=== PATIENT | female | born 1990 | race Caucasian/White ===

== ENCOUNTER 2019-01-15 23:29 | Emergency (ER) | payer BC ==
[2019-01-16 01:30] LABS: APPEARANCE,URINE CLEAR; BILIRUBIN,URINE NEGATIVE (NEGATIVE); COLOR,URINE YELLOW; GLUCOSE, URINE NEGATIVE (NEGATIVE); KETONES,URINE NEGATIVE (NEGATIVE); LEUKOCYTE ESTERASE,URINE TRACE (NEGATIVE); NITRITE,URINE NEGATIVE (NEGATIVE); PROTEIN,URINE NEGATIVE (NEGATIVE); URINE SPECIFIC GRAVITY 1.008; UROBILINOGEN,URINE NEGATIVE mg/dL (<2.0)
[2019-01-16 02:40] LABS: ABSOLUTE EOSINOPHILS # (AUTO) 0.3 10^3/uL (0.0-0.6); ABSOLUTE LYMPHOCYTES (AUTO) 1.3 10^3/uL (0.5-4.7); ABSOLUTE MONOCYTES (AUTO) 0.6 10^3/uL (0.1-1.4); ABSOLUTE NEUT (AUTO) 6.9 10^3/uL (1.7-8.2); BASOPHILS % (AUTO) 0.2 % (0-2); EOSINOPHILS % (AUTO) 3.3 % (0-6); HEMATOCRIT 35.7 % (36.0-47.0); HEMOGLOBIN 12.4 g/dL (12.0-15.5); LYMPHOCYTES % (AUTO) 13.7 % (13-45); MEAN CORPUSCULAR HEMOGLOBIN 28.9 pg (27.0-33.4); MEAN CORPUSCULAR HGB CONC 34.8 g/dL (32.0-36.0); MEAN CORPUSCULAR VOLUME 83 fl (80-97); MONOCYTES % (AUTO) 6.9 % (3-13); PLATELET COUNT 153 10^3/uL (150-450); SEGMENTED NEUTROPHILS % (AUTO) 75.9 % (42-78); TOTAL CELLS COUNTED % (AUTO) 100 %; WHITE BLOOD COUNT 9.2 10^3/uL (4.0-10.5)
[2019-01-16] MEDS ORDERED: NORMAL SALINE 1000 ML 1,000 ML IV ONE (02:53)
[2019-01-16 02:57] LABS: ALANINE AMINOTRANSFERASE 37 U/L (9-52); ALBUMIN 3.7 g/dL (3.5-5.0); ALKALINE PHOSPHATASE 62 U/L (38-126); ANION GAP 10 (5-19); ASPARTATE AMINO TRANSFERASE 22 U/L (14-36); BILIRUBIN,DIRECT 0.2 mg/dL (0.0-0.4); BILIRUBIN,TOTAL 0.6 mg/dL (0.2-1.3); BLOOD UREA NITROGEN 7 mg/dL (7-20); CALCIUM 8.6 mg/dL (8.4-10.2); CARBON DIOXIDE 22 mmol/L (22-30); CHLORIDE 102 mmol/L (98-107); GLUCOSE 94 mg/dL (75-110); POTASSIUM 3.5 mmol/L (3.6-5.0); SODIUM 133.8 mmol/L (137-145); TOTAL PROTEIN 6.5 g/dL (6.3-8.2)
--- NOTE | 2019-01-16 02:59 | ER Document Report ---
ED General - General Chief Complaint: OB Problem (<20wks) Stated Complaint: DIARRHEA Time Seen by Provider: 01/16/19 02:52 Notes: Healthy G2, P0 18-week 2-day female presents to the emergency department chief complaint of dehydration and diarrhea since yesterday. She said that she was at work yesterday and her coworkers told her to scrub out after she lost her color and became peaked appearing. She said that she was also out in the sun all day yesterday helping her best friend put up a pool. She has had 5 episodes of diarrhea since 11:00 yesterday morning. She denies any fevers or chills, headache, dizziness/lightheadedness/numbness/weakness, denies shortness of breath or chest pain, denies abdominal pain, denies vomiting , denies urinary symptoms. TRAVEL OUTSIDE OF THE [place] IN LAST 30 DAYS: No Past Medical History - Social History Smoking Status: Never Smoker Chew tobacco use (# tins/day): No Frequency of alcohol use: None Drug Abuse: None Family History: None Patient has suicidal ideation: No Patient has homicidal ideation: No Renal/ Medical History: Denies: Hx Peritoneal Dialysis Review of Systems - Review of Systems Constitutional: See HPI EENT: No symptoms reported Cardiovascular: See HPI Respiratory: See HPI Gastrointestinal: See HPI Genitourinary: See HPI Female Genitourinary: See HPI Musculoskeletal: No symptoms reported Skin: No symptoms reported Hematologic/Lymphatic: No symptoms reported Neurological/Psychological: No symptoms reported Physical Exam - Vital signs Vitals: Temp Pulse Resp BP Pulse Ox 98.1 F 87 20 113/76 99 01/16/19 00:14 01/16/19 00:14 01/16/19 00:14 01/16/19 00:14 01/16/19 00:14 - Notes Notes: PHYSICAL EXAMINATION: Reviewed vital signs and charting by RN GENERAL: Alert, interacts well. No acute distress. HEAD: Normocephalic, atraumatic. EYES: Pupils equal and round. Extraocular movements intact. ENT: Oral mucosa moist, tongue midline. NECK: Full range of motion. Trachea midline. LUNGS: Clear to auscultation bilaterally, no wheezes, rales, or rhonchi. No respiratory distress. HEART: Regular rate and rhythm. No murmur ABDOMEN: soft, non-tender. No distention. Bowel sounds present EXTREMITIES: Moves all 4 extremities spontaneously. No edema, No cyanosis. PSYCH: Normal affect, normal mood. SKIN: Warm, dry, normal turgor. No rashes or lesions noted. Course - Re-evaluation Re-evalutation: 01/16/19 02:58 Overall well-appearing. No clinical evidence of dehydration, mucous membranes moist, no anemia. I will give her a normal saline 1 L bolus and p.o. fluids. Pending that she is stable for discharge. 01/16/19 03:37 CMP is back. Potassium 3.5. Mildly hyponatremic. Patient is receiving IV fluids. She is stable for discharge. - Vital Signs Vital signs: Temp Pulse Resp BP Pulse Ox 98.1 F 87 20 113/76 99 01/16/19 00:14 01/16/19 00:14 01/16/19 00:14 01/16/19 00:14 01/16/19 00:14 - Laboratory Result Diagrams: 01/16/19 02:08 01/16/19 02:08 Laboratory results interpreted by me: 01/16/19 01/16/19 01/16/19 01:15 02:08 02:08 Hct 35.7 L Sodium 133.8 L Potassium 3.5 L Creatinine 0.48 L Ur Leukocyte Esterase TRACE H Discharge - Discharge Clinical Impression: Nausea Diarrhea Qualifiers: Diarrhea type: unspecified type Qualified Code(s): R19.7 - Diarrhea, unspecified Condition: Good Disposition: HOME, SELF-CARE Additional Instructions: You have been seen in the Emergency Department (ED) today for nausea and diarrhea. Your work up today has not shown a clear cause for your symptoms. Follow up with your OB as soon as possible regarding today's emergent visit and your symptoms of nausea. Return to the Emergency Department (ED) if you develop abdominal pain, bloody vomiting, bloody diarrhea, if you are unable to tolerate fluids due to vomiting, or if you develop other symptoms that concern you.
[2019-01-16 03:44] VITALS: BP 117/67
== END 2019-01-16 03:44 | disposition home or self-care (01) ==
LOC: ER 23:29
DX: O26.892 Other specified pregnancy related conditions, second trimester (principal); R19.7 Diarrhea, unspecified; R11.0 Nausea; O99.282 Endocrine, nutritional and metabolic diseases complicating pregnancy, second trimester; E87.1 Hypo-osmolality and hyponatremia; Z3A.18 18 weeks gestation of pregnancy
CPT/HCPCS: 99284; 36415; 84702; 85025; 80053; 81001; J7030